=== PATIENT | male | born 1995 | race Caucasian/White ===

== ENCOUNTER 2022-01-30 14:02 | Emergency (ER) | payer BC, OTHER ==
[~2022-01-30] VITALS: Ht 162.6 cm; Wt 86.5 kg
[2022-01-30 15:56] VITALS: BP 132/76
== END 2022-01-30 16:22 | disposition home or self-care (01) ==
LOC: ER 14:02
DX: S80.12XD Contusion of left lower leg, subsequent encounter (principal); X58.XXXD Exposure to other specified factors, subsequent encounter